=== PATIENT | male | born 2000 | race American Indian/Alaskan Native ===

== ENCOUNTER 2019-03-01 17:52 | Emergency (ER) | payer SELFPAY ==
[2019-03-01 18:05] VITALS: BP 124/73
--- NOTE | 2019-03-01 18:12 | Event Note ---
ED Screening Note Date of service: 03/01/19 Time: 18:10 ED Screening Note: 18 y/o male comes in complaing of chest with SOB. Pain worst with taking a breath. Recently traveled from [place]. This initial assessment/diagnostic orders/clinical plan/treatment(s) is/are subject to change based on patients health status, clinical progression and re- assessment by fellow clinical providers in the ED. Further treatment and workup at subsequent clinical providers discretion. Patient/guardian urged not to elope from the ED as their condition may be serious if not clinically assessed and managed. Initial orders include:
--- NOTE | 2019-03-01 18:31 | XRay Report ---
CHEST 2 VIEWS INDICATION / CLINICAL INFORMATION: chest pain. COMPARISON: None available. FINDINGS: SUPPORT DEVICES: None. HEART / MEDIASTINUM: No significant abnormality. LUNGS / PLEURA: No significant pulmonary or pleural abnormality. No pneumothorax. ADDITIONAL FINDINGS: No significant additional findings. IMPRESSION: 1. No acute findings. Signer Name: Dez Hogan MD Signed: 03/01/2019 6:26 PM Workstation Name: [id number]
--- NOTE | 2019-03-01 18:35 | Emergency Department Report ---
HPI - General Chief Complaint: Chest Pain Time Seen by Provider: 03/01/19 18:10 - [facility] HPI: Room 36 The patient is 18-year-old male presenting with a chief complaint of chest pain. The patient says when he awakened this morning he noticed sharp and constant pain in his left chest. Patient states he felt slightly short of breath and near syncopal prompting him to come to the emergency department. Patient denies any preceding trauma or history of cough. Patient complained the right upper extremity numbness earlier this morning but none now. Patient pleurisy and a subjective fever last night. Patient currently gives his pain a score of 10/10 ED Past Medical Hx - Past Medical History Previous Medical History?: No - Surgical History Past Surgical History?: Yes Additional Surgical History: hernia repair as a child. - Family History Family history: no significant - Social History Smoking Status: Never Smoker Substance Use Type: None (denies illicit drug use) - Medications Home Medications: Home Medications Medication Instructions Recorded Confirmed Last Taken Type Ibuprofen [Motrin 800 MG tab] 800 mg PO Q8HR PRN #20 tablet 03/01/19 Unknown Rx traMADol [Ultram] 50 mg PO Q6HR PRN #10 tablet 03/01/19 Unknown Rx ED Review of Systems ROS: Stated complaint: CHEST PAIN Other details as noted in HPI Constitutional: denies: fever Eyes: denies: eye pain ENT: denies: throat pain Respiratory: shortness of breath, other (pleurisy) Cardiovascular: chest pain Endocrine: no symptoms reported Gastrointestinal: denies: abdominal pain Genitourinary: denies: dysuria Musculoskeletal: myalgia Skin: denies: lesions Neurological: numbness. denies: headache Physical Exam - Physical Exam Vital Signs: Vital Signs 03/01/19 18:04 Temperature 98.2 F Pulse Rate 74 Respiratory 16 Rate Blood Pressure 124/73 O2 Sat by Pulse 100 Oximetry Physical Exam: GENERAL: The patient is well-developed well-nourished male lying on stretcher not appearing to be in acute distress. [] HEENT: Normocephalic. Atraumatic. Extraocular motions are intact. Patient has moist mucous membranes. NECK: Supple. Trachea midline CHEST/LUNGS: Clear to auscultation. Breath sounds equal bilaterally. There is no respiratory distress noted. HEART/CARDIOVASCULAR: Regular. There is no tachycardia. There is no gallop rub or murmur. 2+ radial pulse on the right ABDOMEN: Abdomen is soft, nontender. Patient has normal bowel sounds. There is no abdominal distention. SKIN: There is no rash. There is no edema. There is no diaphoresis. NEURO: The patient is awake, alert, and oriented. The patient is cooperative. The patient has no focal neurologic deficits. The patient has normal speech MUSCULOSKELETAL: There is no evidence of acute injury. ED Course Vital Signs 03/01/19 18:04 Temperature 98.2 F Pulse Rate 74 Respiratory 16 Rate Blood Pressure 124/73 O2 Sat by Pulse 100 Oximetry ED Medical Decision Making - Lab Data Result diagrams: 03/01/19 18:25 03/01/19 18:25 Laboratory Tests 03/01/19 03/01/19 03/01/19 18:25 18:25 18:25 WBC 6.6 RBC 5.24 H Hgb 15.4 H Hct 47.1 H MCV 90 MCH 30 MCHC 33 RDW 13.7 Plt Count 335 Lymph % (Auto) 30.4 [place] % (Auto) 6.0 Eos % (Auto) 13.6 H Baso % (Auto) 1.1 Lymph # 2.0 [place] # 0.4 Eos # 0.9 H Baso # 0.1 Seg Neutrophils % 48.9 Seg Neutrophils # 3.2 D-Dimer 136.21 Sodium 143 Potassium 3.9 Chloride 102.6 Carbon Dioxide 25 Anion Gap 19 BUN 9 Creatinine 1.3 Estimated GFR > 60 BUN/Creatinine Ratio 7 Glucose 69 L Calcium 9.0 Total Bilirubin 0.40 AST 16 ALT 8 Alkaline Phosphatase 60 Troponin T < 0.010 Total Protein 7.8 Albumin 4.6 Albumin/Globulin Ratio 1.4 - EKG Data -: EKG Interpreted by Me EKG shows normal: sinus rhythm Rate: normal - EKG Data When compared to previous EKG there are: previous EKG unavailable Interpretation: other (early repolarization) - Radiology Data Radiology results: report reviewed (chest x-ray), image reviewed (chest x-ray) interpreted by me: Chest x-ray-no focal infiltrate, no pneumothorax [facility] [address] [place] [address] XRay Report Signed Patient: LAUREN NOLAND MR#: [id number] : 2000 Acct:[id number] Age/Sex: 18 / M ADM Date: 03/01/19 Loc: ED Attending Dr: Ordering Physician: MONICA RIVERA Date of Service: 03/01/19 Procedure(s): XR chest routine 2V Accession Number(s): [id number] cc: MONICA RIVERA Fluoro Time In Minutes: CHEST 2 VIEWS INDICATION / CLINICAL INFORMATION: chest pain. COMPARISON: None available. FINDINGS: SUPPORT DEVICES: None. HEART / MEDIASTINUM: No significant abnormality. LUNGS / PLEURA: No significant pulmonary or pleural abnormality. No pneumothorax. ADDITIONAL FINDINGS: No significant additional findings. IMPRESSION: 1. No acute findings. Signer Name: Dez Hogan MD Signed: 03/01/2019 6:26 PM Workstation Name: [id number] Transcribed By: CLARIBEL Dictated By: Dez Hogan MD Electronically Authenticated By: Dez Hogan MD Signed Date/Time: 03/01/191825 DD/ 25 TD/TT: - Differential Diagnosis costochondritis, pleurisy, bronchitis, PE, ACS, pericarditis Critical care attestation.: If time is entered above; I have spent that time in minutes in the direct care of this critically ill patient, excluding procedure time. ED Disposition Clinical Impression: Atypical chest pain Disposition: DC-01 TO HOME OR SELFCARE Is pt being admited?: No Does the pt Need Aspirin: No Condition: Stable Instructions: Chest Pain (ED) Prescriptions: Ibuprofen [Motrin 800 MG tab] 800 mg PO Q8HR PRN #20 tablet PRN Reason: Pain, Moderate (4-6) traMADol [Ultram] 50 mg PO Q6HR PRN #10 tablet PRN Reason: Pain Referrals: IZABEL BAER DO [Staff Physician] - 3-5 Days Time of Disposition: 19:48
[2019-03-01 19:05] LABS: Alanine Aminotransferase 8 units/L (7-56); Albumin 4.6 g/dL (3.9-5); BUN/Creatinine Ratio 7; Blood Urea Nitrogen 9 mg/dL (9-20); Hemolysis Index 13
[2019-03-01 19:13] LABS: Basophils # (Auto) 0.1 K/mm3 (0.0-0.1); Basophils % (Auto) 1.1 % (0.0-1.8); Eosinophils # (Auto) 0.9 K/mm3 (0.0-0.4); Eosinophils % (Auto) 13.6 % (0.0-4.3); Hematocrit 47.1 % (35.5-45.6); Hemoglobin 15.4 gm/dl (11.8-15.2); Lymphocytes % (Auto) 30.4 % (13.4-35.0); Mean Corpuscular HGB Conc 33 % (32-34); Mean Corpuscular Volume 90 fl (84-94); Monocytes # (Auto) 0.4 K/mm3 (0.0-0.8); Platelet Count 335 K/mm3 (140-440); Red Blood Count 5.24 M/mm3 (3.65-5.03); Red Cell Distribution Width 13.7 % (13.2-15.2)
== END 2019-03-01 20:37 | disposition home or self-care (01) ==
LOC: ED 17:52
DX: R07.89 Other chest pain (principal)
CPT/HCPCS: 36415; 71046; 80053; 84484; 85025; 85379; 93005; 93010; 99283